=== PATIENT | female | born 1975 | race Caucasian/White ===

== ENCOUNTER → 2016-08-13 | Outpatient (CLI) | payer BC | LOC: WI 10:55 | PROVIDERS: ATTEND Family Medicine | DX: Z12.31 Encounter for screening mammogram for malignant neoplasm of breast (principal); Z53.8 Procedure and treatment not carried out for other reasons ==

== ENCOUNTER → 2016-09-01 | Outpatient (CLI) | payer BC ==
--- NOTE | 2016-09-01 16:31 | WOMENS IMAGING REPORT ---
EXAM DESCRIPTION: BILAT DIAGNOSTIC MAMMO W/CAD; U/S BREAST UNILAT LIMITED COMPLETED DATE/TIME: 09/01/2016 1:44 pm; 09/01/2016 3:04 pm REASON FOR STUDY: BILATERAL DIAGNOSTIC; RT BREAST DISCHARGE R92.2 INCONCLUSIVE MAMMOGRAM COMPARISON: No previous TECHNIQUE: Standard craniocaudal and mediolateral oblique views of each breast recorded using digita l acquisition. Right breast 90 mediolateral view, cone compression of the retroareolar region in the CC and MLO leslie entations. Because of a history of right nipple discharge, right retroareolar breast ultrasound was also perform ed. LIMITATIONS: None. FINDINGS: RIGHT BREAST MASSES: No suspicious masses. CALCIFICATIONS: No new or suspicious calcifications. ARCHITECTURAL DISTORTION: None. DEVELOPING DENSITY: None. ASYMMETRY: None noted. OTHER: No other significant findings. LEFT BREAST MASSES: No suspicious masses. CALCIFICATIONS: No new or suspicious calcifications. ARCHITECTURAL DISTORTION: None. DEVELOPING DENSITY: None. ASYMMETRY: None noted. OTHER: No other significant finding. Read with the assistance of CAD: .[facility] - R2 Cenova Version 1.3 .[facility] - R2 Cenova Version 1.3 .[facility] - R2 Cenova Version 2.4 .[facility] - R2 Cenova Version 2.4 .[facility] - R2 Application Developer Manager Version 9.2 Right breast ultrasound: Ultrasound of the right breast was performed in the retroareolar region. No dilated ducts. No cysts . No solid nodules. No worrisome acoustic absorption. IMPRESSION: No mammographic or sonographic evidence for malignancy right breast. No mammographic ev idence for malignancy left breast. BREAST DENSITY: b. There are scattered areas of fibroglandular density. BIRAD: 1 Negative. RECOMMENDATION: RECOMMENDED FOLLOW UP: Clinical follow-up for nipple discharge. If nipple discharge becomes bloody, consider MRI or ductogram for follow-up. SPECIFIC INTERVENTION/IMAGING/CONSULTATION RECOMMENDED:No additional intervention/ imaging/consultati on needed at this time. COMMUNICATION:Patient notified by letter COMMENT: The patient has been notified of the results by letter per MQSA requirements. Additional no tification policies are in place for contacting patient with suspicious or incomplete findings. Quality ID #225: The [employer] recommends an annual screening mammogram for women aged 40 years or over. This facility utilizes a reminder system to ensure that all patients receive reminder letters, and/or direct phone calls for appointments. This includes reminders for routine scr eening mammograms, diagnostic mammograms, or other Breast Imaging Interventions when appropriate. Th is patient will be placed in the appropriate reminder system. The [employer] (ACR) has developed recommendations for screening MRI of the breast s in certain patient populations, to be used in conjunction with mammography. Breast MRI surveillanc e may be appropriate for women with more than 20% lifetime risk of developing breast cancer as deter mined by genetic testing, significant family history of the disease, or history of mantle radiation f or Hodgkins Disease. ACR Practice Guidelines 2008. TECHNICAL DOCUMENTATION: FINDING NUMBER: (1) ASSESSMENT: (1) JOB ID: [id number] [employer]- All Rights Reserved
--- NOTE | 2016-09-01 16:31 | WOMENS IMAGING REPORT ---
EXAM DESCRIPTION: BILAT DIAGNOSTIC MAMMO W/CAD; U/S BREAST UNILAT LIMITED COMPLETED DATE/TIME: 09/01/2016 1:44 pm; 09/01/2016 3:04 pm REASON FOR STUDY: BILATERAL DIAGNOSTIC; RT BREAST DISCHARGE R92.2 INCONCLUSIVE MAMMOGRAM COMPARISON: No previous TECHNIQUE: Standard craniocaudal and mediolateral oblique views of each breast recorded using digita l acquisition. Right breast 90 mediolateral view, cone compression of the retroareolar region in the CC and MLO leslie entations. Because of a history of right nipple discharge, right retroareolar breast ultrasound was also perform ed. LIMITATIONS: None. FINDINGS: RIGHT BREAST MASSES: No suspicious masses. CALCIFICATIONS: No new or suspicious calcifications. ARCHITECTURAL DISTORTION: None. DEVELOPING DENSITY: None. ASYMMETRY: None noted. OTHER: No other significant findings. LEFT BREAST MASSES: No suspicious masses. CALCIFICATIONS: No new or suspicious calcifications. ARCHITECTURAL DISTORTION: None. DEVELOPING DENSITY: None. ASYMMETRY: None noted. OTHER: No other significant finding. Read with the assistance of CAD: .[facility] - R2 Cenova Version 1.3 .[facility] - R2 Cenova Version 1.3 .[facility] - R2 Cenova Version 2.4 .[facility] [place] - R2 Cenova Version 2.4 .[facility] - R2 Information Analyst Version 9.2 Right breast ultrasound: Ultrasound of the right breast was performed in the retroareolar region. No dilated ducts. No cysts . No solid nodules. No worrisome acoustic absorption. IMPRESSION: No mammographic or sonographic evidence for malignancy right breast. No mammographic ev idence for malignancy left breast. BREAST DENSITY: b. There are scattered areas of fibroglandular density. BIRAD: 1 Negative. RECOMMENDATION: RECOMMENDED FOLLOW UP: Clinical follow-up for nipple discharge. If nipple discharge becomes bloody, consider MRI or ductogram for follow-up. SPECIFIC INTERVENTION/IMAGING/CONSULTATION RECOMMENDED:No additional intervention/ imaging/consultati on needed at this time. COMMUNICATION:Patient notified by letter COMMENT: The patient has been notified of the results by letter per MQSA requirements. Additional no tification policies are in place for contacting patient with suspicious or incomplete findings. Quality ID #225: [employer] recommends an annual screening mammogram for women aged 40 years or over. This facility utilizes a reminder system to ensure that all patients receive reminder letters, and/or direct phone calls for appointments. This includes reminders for routine scr eening mammograms, diagnostic mammograms, or other Breast Imaging Interventions when appropriate. Th is patient will be placed in the appropriate reminder system. The [employer] (ACR) has developed recommendations for screening MRI of the breast s in certain patient populations, to be used in conjunction with mammography. Breast MRI surveillanc e may be appropriate for women with more than 20% lifetime risk of developing breast cancer as deter mined by genetic testing, significant family history of the disease, or history of mantle radiation f or Hodgkins Disease. ACR Practice Guidelines 2008. TECHNICAL DOCUMENTATION: FINDING NUMBER: (1) ASSESSMENT: (1) JOB ID: [id number] [employer]- All Rights Reserved
== END ==
LOC: WI 13:05
PROVIDERS: ATTEND Family Medicine
DX: R92.2 Inconclusive mammogram (principal)
CPT/HCPCS: 76642; G0204; 77066

== ENCOUNTER 2019-03-03 14:43 | Emergency (ER) | payer BC ==
[2019-03-03] MEDS ORDERED: METHYLPREDNISOLONE INJ 125 MG/2 ML SDV IV ONE (16:32)
[2019-03-03] MEDS ORDERED: MAGNESIUM SULFATE/D5W 1 GM/100 ML RTUPB IV ONE ×2 (16:32→16:33)
[2019-03-03] MEDS ORDERED: LEVETIRACETAM 500 MG/NACL-ISO 500 MG/100 ML RTUPB IV ONE (16:32)
[2019-03-03] MEDS ORDERED: IPRATROPIUM/ALBUTEROL 0.5-2.5 MG/3 ML AMPUL NEB ONE (16:32)
[2019-03-03] MEDS ORDERED: NORMAL SALINE 1000 ML 1,000 ML IV ONE (16:32)
--- NOTE | 2019-03-03 16:35 | ER Document Report ---
ED Medical Screen (RME) - General Chief Complaint: Shortness Of Breath Stated Complaint: BREATHING PROBLEMS Time Seen by Provider: 03/03/19 16:31 Primary Care Provider: ELOISA CABRERA MD [Primary Care Provider] - Follow up as needed TRAVEL OUTSIDE OF THE [place]. IN LAST 30 DAYS: No - HPI Notes: 03/03/19 16:33 Patient is a 43-year-old female with a history of seizures, hypothyroidism, asthma who presents complaining of wheezing, shortness of breath, cough for the past 2 days. She did have a seizure a couple hours prior to arrival, but has returned to baseline thereafter per family and patient. No fever, chest pain, abdominal pain, nausea/vomiting. I have treated and performed a rapid initial assessment of this patient. A comprehensive ED assessment and evaluation of the patient, analysis of test results and completion of medical decision making process will be conducted by additional ED providers. Charge nurse notified of condition for room in back. PHYSICAL EXAMINATION: GENERAL: Patient in moderate respiratory distress with audible wheeze noted. Cannot speak in full sentences. Lungs: Tight throughout with wheezing present. Mild retractions noted to the intracostals. currently tachypneic Mouth: tongue bite noted rt side Neuro: Cranial nerves grossly intact. - Related Data Allergies/Adverse Reactions: Shellfish * [Shellfish] Allergy (Verified 02/17/14 22:54) Past Medical History Pulmonary Medical History: Reports: Hx Bronchitis Physical Exam - Vital signs Vitals: Temp Pulse Resp BP Pulse Ox 98.1 F 104 H 18 171/96 H 95 03/03/19 14:47 03/03/19 14:47 03/03/19 14:47 03/03/19 14:47 03/03/19 14:47 Course - Vital Signs Vital signs: Temp Pulse Resp BP Pulse Ox 98.1 F 104 H 18 171/96 H 95 03/03/19 14:47 03/03/19 14:47 03/03/19 14:47 03/03/19 14:47 03/03/19 14:47 Doctor's Discharge - Discharge Referrals: ELOISA CABRERA MD [Primary Care Provider] - Follow up as needed
[2019-03-03 17:08] LABS: VENOUS BLOOD BASE EXCESS -0.3 mmol/L; VENOUS BLOOD HCO3 26.3 mmol/L (20-32); VENOUS BLOOD PCO2 50.5 mmHg (35-63); VENOUS BLOOD PH 7.34 (7.30-7.42)
[2019-03-03 17:12] LABS: ABSOLUTE BASOPHILS # (AUTO) 0.2 10^3/uL (0.0-0.2); ABSOLUTE EOSINOPHILS # (AUTO) 0.6 10^3/uL (0.0-0.6); ABSOLUTE LYMPHOCYTES (AUTO) 2.4 10^3/uL (0.5-4.7); ABSOLUTE MONOCYTES (AUTO) 0.9 10^3/uL (0.1-1.4); ABSOLUTE NEUT (AUTO) 9.9 10^3/uL (1.7-8.2); BASOPHILS % (AUTO) 1.2 % (0-2); EOSINOPHILS % (AUTO) 4.5 % (0-6); HEMATOCRIT 42.5 % (36.0-47.0); HEMOGLOBIN 14.4 g/dL (12.0-15.5); LYMPHOCYTES % (AUTO) 16.9 % (13-45); MEAN CORPUSCULAR HEMOGLOBIN 31.2 pg (27.0-33.4); MEAN CORPUSCULAR HGB CONC 33.9 g/dL (32.0-36.0); MEAN CORPUSCULAR VOLUME 92 fl (80-97); MONOCYTES % (AUTO) 6.6 % (3-13); PLATELET COUNT 406 10^3/uL (150-450); RED BLOOD COUNT 4.62 10^6/uL (3.72-5.28); RED CELL DISTRIBUTION WIDTH 14.8 % (11.5-14.0); SEGMENTED NEUTROPHILS % (AUTO) 70.8 % (42-78); TOTAL CELLS COUNTED % (AUTO) 100 %
[2019-03-03 17:30] LABS: ALBUMIN 4.2 g/dL (3.5-5.0); ALKALINE PHOSPHATASE 74 U/L (38-126); ANION GAP 9 (5-19); ASPARTATE AMINO TRANSFERASE 21 U/L (14-36); BILIRUBIN,DIRECT 0.2 mg/dL (0.0-0.4); BILIRUBIN,TOTAL 0.4 mg/dL (0.2-1.3); BLOOD UREA NITROGEN 10 mg/dL (7-20); CARBON DIOXIDE 26 mmol/L (22-30); CHLORIDE 106 mmol/L (98-107); GLUCOSE 90 mg/dL (75-110); POTASSIUM 4.4 mmol/L (3.6-5.0); TOTAL PROTEIN 7.5 g/dL (6.3-8.2)
--- NOTE | 2019-03-03 17:48 | EKG REPORT ---
SEVERITY:- OTHERWISE NORMAL ECG - SINUS TACHYCARDIA : Confirmed by: Jaspreet Malloy MD 03-Mar-2019 17:48:10
--- NOTE | 2019-03-03 18:09 | RADIOLOGY REPORT (SQ) ---
EXAM DESCRIPTION: CHEST SINGLE VIEW COMPLETED DATE/TIME: 03/03/2019 5:36 pm REASON FOR STUDY: SOB, wheezing, cough COMPARISON: 02/17/2014 EXAM PARAMETERS: NUMBER OF VIEWS: One view. TECHNIQUE: Single frontal radiographic view of the chest acquired. RADIATION DOSE: NA LIMITATIONS: None. FINDINGS: LUNGS AND PLEURA: No opacities, masses or pneumothorax. No pleural effusion. MEDIASTINUM AND HILAR STRUCTURES: No masses. Contour normal. HEART AND VASCULAR STRUCTURES: Cardiomegaly. BONES: No acute findings. HARDWARE: None in the chest. OTHER: No other significant finding. IMPRESSION: Cardiomegaly without acute abnormality of the lungs in AP portable projection. TECHNICAL DOCUMENTATION: JOB ID: [id number] [employer]- All Rights Reserved Reading location - IP/workstation name: [email or web address]
[2019-03-03 18:52] LABS: APPEARANCE,URINE CLEAR; BILIRUBIN,URINE NEGATIVE (NEGATIVE); COLOR,URINE STRAW; GLUCOSE, URINE NEGATIVE (NEGATIVE); KETONES,URINE NEGATIVE (NEGATIVE); PROTEIN,URINE NEGATIVE (NEGATIVE); URINE SPECIFIC GRAVITY 1.006; UROBILINOGEN,URINE NEGATIVE mg/dL (<2.0)
[2019-03-03] MEDS: ALBUTEROL SULFATE 0.083% NEB 2.5 MG/3 ML AMPUL NEB SCH ×2 (19:38→20:00)
--- NOTE | 2019-03-03 21:01 | ER Document Report ---
ED General - General Chief Complaint: Shortness Of Breath Stated Complaint: BREATHING PROBLEMS Time Seen by Provider: 03/03/19 16:31 Primary Care Provider: ELOISA CABRERA MD [NO LOCAL MD] - Follow up as needed Information source: Patient TRAVEL OUTSIDE OF THE U.[place]. IN LAST 30 DAYS: No - HPI Onset: This afternoon - 1300 Onset/Duration: Sudden Severity: Moderate Pain Level: 1 Associated symptoms: Productive cough, Shortness of breath Similar symptoms previously: Yes Recently seen / treated by doctor: No Notes: Patient reports that she had a seizure around 1300 biting her right tongue. She reports she has not had any seizures for over 5 years. She was seen more than 5 years ago by a neurologist who advised they do not usually see seizures and older adult individuals. Patient works [employer] and has IVC in many people this week. These people often are smoking crack and overdosing. Patient has been using her inhalers more than usual for the last several days. For the last 3 days she has had fever chills productive cough just like her daughter as well as tachycardia. Today she has had at least 10 breathing treatments to include the treatment she is received here in the emergency room. Patient is morbidly obese and reports she has not had a PMD for many years. She reports she has had leg edema and occasional pains in bilateral legs. She has a skin lesion over her left distal anterior leg proximally 1 cm diameter that has not been seen by head of art. I advised her to follow-up with a head of art after today's ER visit. Patient also takes Synthroid and recently has had her 100 mcg increased to 250 mcg. Today her TSH is quite suppressed. - Related Data Allergies/Adverse Reactions: Shellfish * [Shellfish] Allergy (Verified 02/17/14 22:54) Home Medications: Synthroid 250 mcg QDay, Buspar PRN, Albuterol Inhaler, Albuterol Nebulizer Past Medical History - General Information source: Patient, Relative - Social History Smoking Status: Current Some Day Smoker - Patient smokes at least 2 to 5 cigarettes daily and has been wearing a nicotine patch for at least 3 weeks. Chew tobacco use (# tins/day): No Smoking Education Provided: Yes - Advised against smoking cigarettes or other mind altering drugs Frequency of alcohol use: None Drug Abuse: None Lives with: Family Family History: Reviewed & Not Pertinent Patient has suicidal ideation: No Patient has homicidal ideation: No Pulmonary Medical History: Reports: Hx Asthma, Hx Bronchitis Neurological Medical History: Reports: Hx Seizures - Patient is historian about this; Review of Systems - Review of Systems Constitutional: Fever, Weakness, Recent illness EENT: Nose congestion Cardiovascular: Orthopnea, Edema Respiratory: Cough, Short of breath Physical Exam - Vital signs Vitals: Temp Pulse Resp BP Pulse Ox 98.1 F 104 H 18 171/96 H 95 03/03/19 14:47 03/03/19 14:47 03/03/19 14:47 03/03/19 14:47 03/03/19 14:47 - Respiratory Respiratory status: Respiratory distress Breath sounds: Wheezing - Cardiovascular Rhythm: Tachycardia Murmur: No Friction rub: No Beryl's crunch: No - Extremities General upper extremity: Normal inspection Ankle: Edema - Both left and right ankles and legs negative for pitting Course - Vital Signs Vital signs: Temp Pulse Resp BP Pulse Ox 98.8 F 115 H 17 143/67 H 96 03/03/19 19:35 03/03/19 20:06 03/03/19 20:06 03/03/19 20:00 03/03/19 20:01 - Laboratory Result Diagrams: 03/03/19 16:47 03/03/19 16:47 Laboratory results interpreted by me: 03/03/19 03/03/19 16:47 16:47 WBC 14.0 H RDW 14.8 H Absolute Neuts (auto) 9.9 H TSH < 0.01 L - Diagnostic Test Radiology reviewed: Reports reviewed - EKG Interpretation by Me EKG shows normal: Sinus rhythm Rate: Tachycardia Rhythm: NSR Discharge - Discharge Clinical Impression: Bronchitis, URI (upper respiratory infection), Seizure Condition: Fair Disposition: HOME, SELF-CARE Prescriptions: Hydrocodone Bit/Homatropine [Hycodan Syrup 5-1.5 mg/5 ml Ud Cup] 5 ml PO Q4HP PRN #120 ml PRN Reason: Levetiracetam [Keppra 500 mg Tablet] 500 mg PO Q12 #30 tablet Azithromycin [Zithromax 250 mg Tablet] 250 mg PO ASDIR PRN #6 tablet PRN Reason: Referrals: ELOISA CABRERA MD [NO LOCAL MD] - Follow up as needed
[2019-03-03 21:31] LABS: A TYPE INFLUENZA AG NEGATIVE (NEGATIVE); B INFLUENZA AG NEGATIVE (NEGATIVE)
[2019-03-03] MEDS ORDERED: AZITHROMYCIN 250 MG TABLET PO ONE (22:03)
--- NOTE | 2019-03-03 22:29 | RADIOLOGY REPORT (SQ) ---
EXAM DESCRIPTION: CT HEAD WITHOUT IV CONTRAST COMPLETED DATE/TME: 03/03/2019 20:53 CLINICAL HISTORY: 43 years, Female, seizure COMPARISON: None. TECHNIQUE: Noncontrast CT of the head was acquired. Coronal and sagittal reformations were created. Images stored on PACS. All CT scanners at this facility use dose modulation, iterative reconstruction, and/or weight based dosing when appropriate to reduce radiation dose to as low as reasonably achievable (ALARA). [facility]: Dose Right [facility]: CareDose [facility]: Dose Right [facility]: Teradose 4D [facility]: Smart Technologies LIMITATIONS: None. FINDINGS: Brain parenchyma is normal in attenuation. No acute intracranial hemorrhage, mass effect, or extra-axial fluid is seen. Ventricles, sulcal spaces, and basilar cisterns are normal in size and configuration. Minimal opacity is noted about the ethmoidal air cells. Remaining paranasal sinuses and mastoid air cells are clear. No depressed skull fractures. IMPRESSION: No acute intracranial abnormality. TECHNICAL DOCUMENTATION: Quality ID # 436: Final reports with documentation of one or more dose reduction techniques (e.g., Automated exposure control, adjustment of the mA and/or kV according to patient size, use of iterative reconstruction technique) copyright 2011 [employer]- All Rights Reserved
--- NOTE | 2019-03-03 22:34 | RADIOLOGY REPORT (SQ) ---
EXAM DESCRIPTION: CT CHEST ANGIOGRAPHY WITHOUT THEN WITH IV CONTRAST COMPLETED DATE/TME: 03/03/2019 00:00 CLINICAL HISTORY: 43 years, Female, SOB COMPARISON: None. TECHNIQUE: Contrast enhanced CT of the chest was acquired. MIPS were created. Images stored on PACS. All CT scanners at this facility use dose modulation, iterative reconstruction, and/or weight based dosing when appropriate to reduce radiation dose to as low as reasonably achievable (ALARA). [facility]: Dose Right [facility]: CareDose [facility]: Dose Right [facility]: Teradose 4D [facility]: Smart Technologies LIMITATIONS: None. FINDINGS: Central airways are patent. Lungs are clear. Mediastinal windows show no significant hilar or mediastinal lymph node enlargement. Heart and great vessels show no suspicious abnormality. The study is essentially nondiagnostic for the evaluation of pulmonary emboli secondary to inadequate contrast bolus timing and motion artifact. No large central filling defects are identified. Limited evaluation of the upper abdomen reveals a hyperenhancing lesion located within the right hepatic lobe on image 92 of series 3 measuring 1.0 x 0.9 cm in size. No additional suspicious findings are evident within the imaged upper abdomen. Bone windows show no destructive osseous lesions. IMPRESSION: Essentially nondiagnostic evaluation for pulmonary emboli secondary to inadequate contrast bolus timing and motion artifact. No large central filling defect identified. Hyperenhancing lesion located within the right hepatic lobe. In the absence of known primary malignancy or underlying chronic liver disease, this most likely represents a flash filling hemangioma. Consider confirmation with nonemergent multiphasic CT or MR of the abdomen. TECHNICAL DOCUMENTATION: Quality ID # 436: Final reports with documentation of one or more dose reduction techniques (e.g., Automated exposure control, adjustment of the mA and/or kV according to patient size, use of iterative reconstruction technique) copyright 2011 [employer]- All Rights Reserved
[2019-03-04 02:29] VITALS: BP 118/72
== END 2019-03-03 23:15 | disposition home or self-care (01) ==
LOC: ER 14:43
DX: J45.909 Unspecified asthma, uncomplicated (principal); R56.9 Unspecified convulsions; J06.9 Acute upper respiratory infection, unspecified; R00.0 Tachycardia, unspecified; R06.01 Orthopnea; R50.9 Fever, unspecified; R09.81 Nasal congestion; R53.1 Weakness; R05 Cough; R06.02 Shortness of breath; E66.01 Morbid (severe) obesity due to excess calories; R60.9 Edema, unspecified; M79.604 Pain in right leg; M79.605 Pain in left leg; L98.9 Disorder of the skin and subcutaneous tissue, unspecified; F17.210 Nicotine dependence, cigarettes, uncomplicated; Z79.899 Other long term (current) drug therapy; Z91.013 Allergy to seafood
CPT/HCPCS: 93005; 96376; 94640 ×2; 99285; 96361; 96374; 96375; 36415; 83735; 84443; 85025; 80053; 81001; 82803; 87804; 71045; 70450; 71275; 93010; J2930; J3475; J7030; J1953; J7620

== ENCOUNTER 2019-03-26 03:55 | Observation (INO) | payer BC ==
[2019-03-26] MEDS ORDERED: METHYLPREDNISOLONE INJ 125 MG/2 ML SDV IV ONE (04:01)
[2019-03-26] MEDS ORDERED: ONDANSETRON HCL INJ/PF 4 MG/2 ML SDV ONE (04:06)
[2019-03-26] MEDS ORDERED: ONDANSETRON HCL INJ/PF 4 MG/2 ML SDV IV ONE (04:06)
[2019-03-26] MEDS ORDERED: IPRATROPIUM/ALBUTEROL 0.5-2.5 MG/3 ML AMPUL NEB ONE ×2 (04:07→06:14)
[2019-03-26] MEDS: MAGNESIUM SULFATE/D5W 1 GM/100 ML RTUPB IV SCH ×2 (04:10→04:19)
--- NOTE | 2019-03-26 04:10 | ER Document Report ---
ED Respiratory Problem <SACHI ALEXIS - Last Filed: 03/26/19 09:04> - General TRAVEL OUTSIDE OF THE [place] IN LAST 30 DAYS: No <URBANO WOOD - Last Filed: 03/26/19 09:29> - General Chief Complaint: Breathing Difficulty Stated Complaint: SHORT OF BREATH Time Seen by Provider: 03/26/19 04:00 Notes: Patient is a 43-year-old male who presents the emergency department with a chief complaint of shortness of breath. Patient states that she was diagnosed with br onchitis a few weeks ago, but with the past few nights she has had progressively worse symptoms. Patient started to have her symptoms 3 days ago. She was seen by EMS earlier in the morning yesterday and was given a breathing treatment and did not come to the emergency department. This evening she ended up having worsening as of breath. (URBANO WOOD) - Related Data Allergies/Adverse Reactions: Shellfish * [Shellfish] Allergy (Verified 02/17/14 22:54) Past Medical History - General Information source: Patient - Social History Smoking Status: Never Smoker Family History: Reviewed & Not Pertinent Pulmonary Medical History: Reports: Hx Asthma, Hx Bronchitis Neurological Medical History: Reports: Hx Seizures - Patient is historian about this; <URBANO WOOD - Last Filed: 03/26/19 09:29> Review of Systems <URBANO WOOD - Last Filed: 03/26/19 09:29> - Review of Systems Notes: REVIEW OF SYSTEMS: CONSTITUTIONAL : Denies recent illness. Denies recent unintentional weight loss. Denies fever, chills, or sweats. EENT: Denies eye, ear, throat, or mouth pain, discharge, or symptoms. Denies nasal or sinus congestion. CARDIOVASCULAR: Denies chest pain. RESPIRATORY: See HPI. GASTROINTESTINAL: Denies nausea, vomiting, and diarrhea. Denies abdominal pain. Denies constipation. GENITOURINARY: Denies difficulty urinating, burning, blood in urine, urgency or frequency. MUSCULOSKELETAL: Denies neck and back pain. Denies joint pain or swelling. SKIN: Denies rash, itchiness, or lesions HEMATOLOGIC : Denies easy bruising or bleeding. LYMPHATIC: Denies swollen, painful, enlarged glands. NEUROLOGICAL: Denies no numbness or tingling denies weakness. Denies headache. Denies altered mental status. Denies alteration in speech. PSYCHIATRIC: Denies stress, anxiety, alteration in sleep patterns, or depres yessica. All other systems reviewed and negative. (URBANO WOOD) Physical Exam <URBANO WOOD - Last Filed: 03/26/19 09:29> - Vital signs Vitals: Pulse Ox 96 03/26/19 03:58 - Notes Notes: PHYSICAL EXAMINATION: GENERAL: Appears in acute distress. HEAD: Normocephalic, atraumatic. EYES: PERRL, conjunctiva normal, all extraocular movements intact, sclera nonicteric ENT: Moist mucous membranes. NECK: Supple, no noticeable swelling, redness, rash. Normal range of motion. LUNGS: Expiratory wheezes noted throughout all lung batres. CARDIOVASCULAR: S1-S2, Tachycardic, regular rhythm. Radial pulses 2+, normal. ABDOMEN: Normoactive bowel sounds. Soft, nontender, no guarding, no rebound tenderness, and no masses palpated. EXTREMITIES: Normal strength and range of motion, no pitting or edema. No cyanosis. NEUROLOGICAL: Moves all extremities upon command. Strength 5/5 in all extremities. PSYCH: Normal mood, normal affect. SKIN: Warm, dry. No rash, lesions, ulcerations noted. Normal skin turgor. (URBANO WOOD) Course - Laboratory Result Diagrams: 03/26/19 04:02 03/26/19 04:02 <SACHI ALEXIS - Last Filed: 03/26/19 09:04> - Laboratory Result Diagrams: 03/26/19 04:02 03/26/19 04:02 <URBANO WOOD - Last Filed: 03/26/19 09:29> - Re-evaluation Re-evalutation: 03/26/19 08:05 Report received on the patient. Patient is on 2 L supplemental O2 with pulse oximetry of 92% still. She has audible wheezing despite multiple treatments still becomes dyspneic with speaking. On turning the patient's oxygen off she does desat even with no significant activity to 91% and is short of breath. Awaiting chest CT for PE at this time. Will likely need admission for hypoxia, asthma exacerbation if CTA negative 03/26/19 08:59 Patient is noted to have a left upper lobe pneumonia. On further discussion with the patient she states she was discharged on Zithromax 3 weeks ago and did not get better. Patient also has a history of hypothyroid and does take Synthroid, on review of her labs her TSH was low on her last visit she states she has not been holding her Synthroid we will add a TSH level. Patient also states that she has sleep apnea and is on CPAP at night. 03/26/19 09:[address] Fletcher, Hospitalist. Was discussed will admit (SACHI ALEXIS) 03/26/19 04:28 Patient states that it feels better to breathe after she received 2 DuoNeb treatments, magnesium, and Solu-Medrol. Patient still has expiratory wheezes. I will reassess her. 03/26/19 05:50 Patient still has expiratory wheezes noted throughout all lung batres. She will receive another DuoNeb treatment. 03/26/19 07:48 Patient still has expiratory wheezes noted throughout all lung batres after the third DuoNeb. Awaiting CTA of the chest. 03/26/19 08:00 Bedside handoff of care given to Sachi Alexis NP. He will follow-up on the patient's CTA of the chest. (URBANO WOOD) - Vital Signs Vital signs: Temp Pulse Resp BP Pulse Ox 99.2 F 20 133/83 H 93 03/26/19 04:40 03/26/19 06:46 03/26/19 06:46 03/26/19 06:46 - Laboratory Laboratory results interpreted by me: 03/26/19 03/26/19 03/26/19 04:02 04:02 04:17 WBC 13.8 H RDW 15.5 H Lymph % (Auto) 8.9 L Eos % (Auto) 6.9 H Absolute Neuts (auto) 10.5 H Absolute Eos (auto) 1.0 H ABG HCO3 25.0 H ABG Total CO2 26.3 H Glucose 117 H - EKG Interpretation by Me Additional EKG results interpreted by me: 03/26/19 04:58 Sinus tachycardia. Rate 107; VA 160; QRS 78; QT 352; QTc 470. No ST elevations or depressions noted. (URBANO WOOD) Discharge - Discharge Admitting Provider: Gabriela (Hospitalist) Unit Admitted: Medical Floor <SACHI ALEXIS - Last Filed: 03/26/19 09:04> <URBANO WOOD - Last Filed: 03/26/19 09:29> - Discharge Clinical Impression: Hypoxia Pneumonia Qualifiers: Pneumonia type: due to unspecified organism Laterality: left Lung location: upper lobe of lung Qualified Code(s): J18.9 - Pneumonia, unspecified organism Condition: Serious Disposition: ADMITTED INPATIENT
[2019-03-26 04:22] LABS: ABSOLUTE BASOPHILS # (AUTO) 0.1 10^3/uL (0.0-0.2); ABSOLUTE LYMPHOCYTES (AUTO) 1.2 10^3/uL (0.5-4.7); ABSOLUTE NEUT (AUTO) 10.5 10^3/uL (1.7-8.2); BASOPHILS % (AUTO) 0.9 % (0-2); EOSINOPHILS % (AUTO) 6.9 % (0-6); HEMATOCRIT 41.2 % (36.0-47.0); HEMOGLOBIN 13.8 g/dL (12.0-15.5); LYMPHOCYTES % (AUTO) 8.9 % (13-45); MEAN CORPUSCULAR HEMOGLOBIN 30.8 pg (27.0-33.4); MEAN CORPUSCULAR HGB CONC 33.4 g/dL (32.0-36.0); MEAN CORPUSCULAR VOLUME 92 fl (80-97); MONOCYTES % (AUTO) 6.9 % (3-13); PLATELET COUNT 334 10^3/uL (150-450); RED BLOOD COUNT 4.46 10^6/uL (3.72-5.28); RED CELL DISTRIBUTION WIDTH 15.5 % (11.5-14.0); SEGMENTED NEUTROPHILS % (AUTO) 76.4 % (42-78); TOTAL CELLS COUNTED % (AUTO) 100 %; WHITE BLOOD COUNT 13.8 10^3/uL (4.0-10.5)
[2019-03-26 04:38] LABS: ARTERIAL BLOOD BASE EXCESS 0.1 mmol/L; ARTERIAL BLOOD H2CO3 1.26 mmol/L (1.05-1.35); ARTERIAL BLOOD O2 SATURATION 95.8 % (94-98); ARTERIAL BLOOD PCO2 41.8 mmHg (35-45); ARTERIAL BLOOD PO2 80.4 mmHg (80-100); ARTERIAL BLOOD TOTAL CO2 26.3 mmol/L (21-25)
[2019-03-26 04:38] LABS: ALKALINE PHOSPHATASE 69 U/L (38-126); ANION GAP 9 (5-19); ASPARTATE AMINO TRANSFERASE 22 U/L (14-36); BILIRUBIN,DIRECT 0.3 mg/dL (0.0-0.4); BILIRUBIN,TOTAL 0.6 mg/dL (0.2-1.3); BLOOD UREA NITROGEN 13 mg/dL (7-20); CALCIUM 9.3 mg/dL (8.4-10.2); CARBON DIOXIDE 25 mmol/L (22-30); CHLORIDE 107 mmol/L (98-107); GLUCOSE 117 mg/dL (75-110); POTASSIUM 4.4 mmol/L (3.6-5.0); TOTAL PROTEIN 7.2 g/dL (6.3-8.2)
[2019-03-26 04:44] LABS: ARTERIAL BLOOD FIO2 6L
[2019-03-26] MEDS ORDERED: ALBUTEROL SULFATE 0.083% NEB 2.5 MG/3 ML AMPUL NEB ONE (04:47)
--- NOTE | 2019-03-26 05:05 | RADIOLOGY REPORT (SQ) ---
AP Portable chest: 03/26/2019 4:03 AM PASSENGER REPRESENTATIVE History: 43-year old patient with dyspnea. Comparison: Chest radiograph performed 03/03/2019. Findings: The cardiomediastinal silhouette is enlarged. No pneumothorax is seen. No discrete pleural effusion is apparent. No acute airspace opacities are seen. Impression: No acute airspace opacities are seen. The cardiomediastinal silhouette is enlarged.
[2019-03-26 06:10] LABS: A TYPE INFLUENZA AG NEGATIVE (NEGATIVE); B INFLUENZA AG NEGATIVE (NEGATIVE)
--- NOTE | 2019-03-26 08:47 | RADIOLOGY REPORT (SQ) ---
EXAM DESCRIPTION: CTA CHEST COMPLETED DATE/TIME: 03/26/2019 8:35 am REASON FOR STUDY: shortness of breath; tachycardic COMPARISON: None. TECHNIQUE: CT scan of the chest performed using helical scanning technique with dynamic intravenous contrast injection. Images reviewed with lung, soft tissue and bone windows. Reconstructed coronal and sagittal MPR images reviewed. Additional 3 dimensional post-processing performed to develop Maximal Intensity Projection images ([place] P). All images stored on PACS. All CT scanners at this facility use dose modulation, iterative reconstruction, and/or weight based d osing when appropriate to reduce radiation dose to as low as reasonably achievable (ALARA). [facility]: Dose Right [facility]: CareDose [facility]: Dose Right [facility]: Teradose 4D [facility]: [employer] CONTRAST TYPE AND DOSE: contrast/concentration: Isovue 350.00 mg/ml; Total Contrast Delivered: 75.0 ml; Total Saline Delivered: 64.7 ml Contrast bolus optimized for the pulmonary arteries. Not diagnostic for the aorta. RENAL FUNCTION: BUN 13, creatinine 0.71 RADIATION DOSE: CT Rad equipment meets quality standard of care and radiation dose reduction techniq ues were employed. CTDIvol: 9.9 - 41.8 mGy. DLP: 1447 mGy-cm. . LIMITATIONS: None. FINDINGS: LUNGS AND PLEURA: There are patchy areas of infiltrate in the left upper lobe. No pleural effusions. Minimal right basilar atelectasis. AORTA AND GREAT VESSELS: No aneurysm. Contrast bolus not optimized for the aorta. HEART: No pericardial effusion. No significant coronary artery calcifications. PULMONARY ARTERIES: No emboli visualized in the main pulmonary arteries or the segmental branches. HILAR AND MEDIASTINAL STRUCTURES: No identified masses or abnormal nodes. HARDWARE: None in the chest. UPPER ABDOMEN: No significant findings. Limited exam. THYROID AND OTHER SOFT TISSUES: No masses. No adenopathy. BONES: No acute or significant finding. 3D MIPS: Confirm above findings. OTHER: No other significant finding. IMPRESSION: Patchy areas of infiltrate in the left upper lobe. No pulmonary emboli. COMMENT: Quality ID # [id number]: Final reports with documentation of one or more dose reduction techniques (e.g., Automated exposure control, adjustment of the mA and/or kV according to patient size, use of iterative reconstruction technique) TECHNICAL DOCUMENTATION: JOB ID: [id number]- All Rights Reserved Reading location - IP/workstation name: [email or web address]
[2019-03-26] MEDS ORDERED: CEFTRIAXONE 1 GM/D5W RTU 50 ML IV ONE (08:53)
[2019-03-26] MEDS ORDERED: AZITHROMYCIN INJ 500 MG VIAL IV ONE (08:54)
--- NOTE | 2019-03-26 09:15 | EKG REPORT ---
SEVERITY:- OTHERWISE NORMAL ECG - SINUS TACHYCARDIA : Confirmed by: Leta Andrea 26-Mar-2019 09:14:36
[2019-03-26] MEDS ORDERED: LEVOFLOXACIN 750 MG/D5W RTU 750 MG/150 ML RTUPB IV ONE (09:30)
[2019-03-26] MEDS ORDERED: BUSPIRONE HCL 5 MG PO PRN (13:13)
[2019-03-26] MEDS ORDERED: (PENDING PHARMACY ID) (Naproxen [Naprosyn] 500 MG) PO PRN (13:13)
[2019-03-26] MEDS ORDERED: ALBUTEROL SULFATE 0.083% NEB 2.5 MG/3 ML AMPUL NEB PRN (13:19)
--- NOTE | 2019-03-26 13:23 | PDOC H&P ---
History of Present Illness Admission Date/PCP: 03/26/19 09:09 Patient complains of: Shortness of breath History of Present Illness: CHRIS CHAVEZ is a 43 year old female who has history of asthma, COPD on CPAP which she is noncompliant with. She also has history of seizures and hypothyroidism. She is a former smoker. Her symptoms started initially 3 to 4 weeks ago. She was diagnosed with bronchitis in the emergency room and was discharged on azithromycin. She states she felt better but when she went to work she started to feel fatigued and tired and short of breath. Her symptoms progressed especially the past 3 days. Yesterday she actually was treated by EMS but did not come to the emergency room. Her symptoms did not improve and she had to come today for evaluation. She denied wheezing or fever. Admits to progressive severe cough with yellowish sputum production. Past Medical History Pulmonary Medical History: Reports: Asthma, Bronchitis Neurological Medical History: Reports: Seizures - Patient is historian about this; Social History Smoking Status: Never Smoker Family History Family History: DM Parental Family History Reviewed: Yes Children Family History Reviewed: Yes Sibling(s) Family History Reviewed.: Yes Medication/Allergy Home Medications: Budesonide/Formoterol Fumarate [Symbicort Hfa 80-4.5 Mcg Inhaler 6.9 gm] 1 puff IH BID 03/26/19 Buspirone HCl [Buspar 15 mg Tablet] 5 mg PO Q8HP PRN 03/26/19 Lamotrigine [Lamotrigine Odt] 25 mg PO BID 03/26/19 Levothyroxine Sodium [Synthroid] 25 mcg PO Q6AM 03/26/19 Naproxen [Naprosyn] 500 mg PO BIDP PRN 03/26/19 Allergies/Adverse Reactions: Shellfish * [Shellfish] Allergy (Verified 02/17/14 22:54) Review of Systems All systems: reviewed and no additional remarkable complaints except as stated Physical Exam Vital Signs: Temp Pulse Resp BP Pulse Ox 99.2 F 21 H 148/92 H 95 03/26/19 04:40 03/26/19 12:31 03/26/19 12:31 03/26/19 12:31 Intake & Output 03/25/19 03/26/19 03/27/19 06:59 06:59 06:59 Intake Total 145 150 Balance 145 150 Weight 340 lb Exam: Patient is no acute distress Alert oriented to time place person No anxiety or depression Head: atraumatic normocephalic Pupils: are equal reactive Neck: is supple and trachea is central no lymphadenopathy No pharyngeal erythema or exudates Heart: Regular rate and rhythm, no peripheral edema Lungs: Bilateral wheezing, on nasal cannula oxygen Abdomen: nontender nondistended Neurological exam: unremarkable Musculoskeletal: No joint swelling or effusion chronic lower back pain and tenderness No suicidal or homicidal ideation Results Laboratory Results: 03/26/19 04:02 03/26/19 04:02 03/26/19 03/26/19 03/26/19 04:02 04:02 04:02 WBC 13.8 H RBC 4.46 Hgb 13.8 Hct 41.2 MCV 92 MCH 30.8 MCHC 33.4 RDW 15.5 H Plt Count 334 Seg Neutrophils % 76.4 Carbonic Acid HCO3/H2CO3 Ratio ABG pH ABG pCO2 ABG pO2 ABG HCO3 ABG O2 Saturation ABG Base Excess FiO2 Sodium 140.9 Potassium 4.4 Chloride 107 Carbon Dioxide 25 Anion Gap 9 BUN 13 Creatinine 0.71 Est GFR ( Amer) > 60 Glucose 117 H Lactic Acid 1.5 Calcium 9.3 Total Bilirubin 0.6 AST 22 Alkaline Phosphatase 69 Total Protein 7.2 Albumin 4.0 TSH 03/26/19 03/26/19 04:02 04:17 WBC RBC Hgb Hct MCV MCH MCHC RDW Plt Count Seg Neutrophils % Carbonic Acid 1.26 HCO3/H2CO3 Ratio 19:1 ABG pH 7.40 ABG pCO2 41.8 ABG pO2 80.4 ABG HCO3 25.0 H ABG O2 Saturation 95.8 ABG Base Excess 0.1 FiO2 6L Sodium Potassium Chloride Carbon Dioxide Anion Gap BUN Creatinine Est GFR ( Amer) Glucose Lactic Acid Calcium Total Bilirubin AST Alkaline Phosphatase Total Protein Albumin TSH 0.30 L Impressions: Chest/Abdomen CTA 03/26/19 06:39 IMPRESSION: Patchy areas of infiltrate in the left upper lobe. No pulmonary emboli. Assessment and Plan - Diagnosis (1) Pneumonia Qualifiers: Pneumonia type: due to unspecified organism Laterality: left Lung lo cation: upper lobe of lung Qualified Code(s): J18.9 - Pneumonia, unspecified organism Is this a current diagnosis for this admission?: Yes Plan: Start Levaquin empirically. Start aggressive bronchodilator treatments. Prednisone 40 mg orally daily. (2) Hypothyroidism Is this a current diagnosis for this admission?: Yes Plan: Continue levothyroxine (3) Epilepsy Is this a current diagnosis for this admission?: Yes Plan: Continue Lamictal (4) Sleep apnea Is this a current diagnosis for this admission?: Yes Plan: Noncompliant with CPAP (5) Asthma Is this a current diagnosis for this admission?: Yes Plan: On Symbicort outpatient. Bilateral wheezing on exam. Will start prednisone as above.
[2019-03-26] MEDS ORDERED: BUSPIRONE HCL 10 MG TABLET PO PRN (13:42)
[2019-03-26] MEDS ORDERED: NAPROXEN 250 MG TABLET PO PRN (13:42)
[2019-03-26] MEDS: PREDNISONE 20 MG TABLET PO SCH (15:19)
[2019-03-26] MEDS: IPRATROPIUM/ALBUTEROL 0.5-2.5 MG/3 ML AMPUL NEB SCH ×2 (15:43→20:53)
[2019-03-26] MEDS ORDERED: (PENDING PHARMACY ID) (Budesonide/Formoterol Fumarate 1 PUFF) IH SCH (18:00)
[2019-03-26] MEDS ORDERED: LAMOTRIGINE 25 MG PO SCH (18:00)
[2019-03-27] MEDS: IPRATROPIUM/ALBUTEROL 0.5-2.5 MG/3 ML AMPUL NEB SCH ×6 (00:12→20:26)
[2019-03-27] MEDS: LEVOTHYROXINE SODIUM 0.025 MG TABLET PO SCH (05:12)
[2019-03-27] MEDS ORDERED: LEVOTHYROXINE SODIUM 25 MCG PO SCH (06:00)
[2019-03-27] MEDS: PREDNISONE 20 MG TABLET PO SCH (09:49)
[2019-03-27] MEDS: FLUTICASONE/VILANTEROL 100-25 MCG/DOSE IH SCH (09:49)
[2019-03-27] MEDS: LEVOFLOXACIN 750 MG TABLET PO SCH (09:49)
[2019-03-27] MEDS ORDERED: PREDNISONE 20 MG TABLET PO ONE (11:30)
[2019-03-27] MEDS: METHYLPREDNISOLONE INJ 125 MG/2 ML SDV IV SCH ×2 (13:25→22:36)
[2019-03-27] MEDS ORDERED: METHYLPREDNISOLONE INJ 40 MG/1 ML SDV IV SCH (14:00)
--- NOTE | 2019-03-27 15:58 | PDOC PROGRESS REPORT ---
Subjective Progress Note for:: 03/27/19 Subjective:: CHRIS CHAVEZ is a 43 year old female who has history of asthma, COPD on CPAP which she is noncompliant with. She also has history of seizures and hypothyroidism. She is a former smoker. Her symptoms started initially 3 to 4 weeks ago. She was diagnosed with bronchitis in the emergency room and was discharged on azithromycin. She states she felt better but when she went to work she started to feel fatigued and tired and short of breath. Her symptoms progressed especially the past 3 days. Yesterday she actually was treated by EMS but did not come to the emergency room. Her symptoms did not improve and she had to come today for evaluation. She denied wheezing or fever. Admits to progressive severe cough with yellowish sputum production. 03/27/2019. No acute events overnight. Still significant wheezing on physical examination and dependent on oxygen. Denies any fever, chills, nausea, vomiting, diarrhea, constipation or any urinary symptoms. Reason For Visit: PNEUMONIA Physical Exam Vital Signs: Temp Pulse Resp BP Pulse Ox 97.5 F 84 16 116/67 95 03/27/19 08:33 03/27/19 15:51 03/27/19 15:51 03/27/19 08:33 03/27/19 15:51 Intake & Output 03/26/19 03/27/19 03/28/19 06:59 06:59 06:59 Intake Total 145 410 Balance 145 410 Weight 154.221 kg 150.7 kg General appearance: PRESENT: mild distress Head exam: PRESENT: atraumatic, normocephalic Respiratory exam: PRESENT: prolonged expiratory phas. ABSENT: rales, rhonchi, wheezes Cardiovascular exam: PRESENT: RRR. ABSENT: diastolic murmur, rubs, systolic murmur Neurological exam: PRESENT: alert, awake, oriented to person, oriented to place, oriented to time, oriented to situation, CN II-XII grossly intact. ABSENT: motor sensory deficit Results Laboratory Results: 03/26/19 04:02 03/26/19 04:02 Impressions: Chest/Abdomen CTA 03/26/19 06:39 IMPRESSION: Patchy areas of infiltrate in the left upper lobe. No pulmonary emboli. Assessment and Plan - Diagnosis (1) Acute respiratory failure with hypoxia Is this a current diagnosis for this admission?: Yes Plan: Was likely due to right upper lobe pneumonia complicated by underlying asthma exacerbation. Continue duo nebs, IV steroids, empiric IV antibiotics, supplemental oxygen, LABA, LABA, ICS. (2) Asthma Qualifiers: Asthma severity: mild Asthma persistence: persistent Is this a current diagnosis for this admission?: Yes Plan: Plan as per 1. (3) Pneumonia Qualifiers: Pneumonia type: due to unspecified organism Laterality: left Lung location: upper lobe of lung Qualified Code(s): J18.9 - Pneumonia, unspecified organism Is this a current diagnosis for this admission?: Yes Plan: Likely community-acquired due to gram-positive cocci including Streptococcus pneumonia. Presented with leukocytosis, hypoxia, tachypnea and right upper lobe infiltration or CT chest. Day 2 p.o. levofloxacin. Continue broad-spectrum p.o. antibiotics. Follow-up cultures. (4) Epilepsy Is this a current diagnosis for this admission?: Yes Plan: No recurrence of seizure while inpatient. Continue home meds. Continue seizure, fall and aspiration precautions. (5) Hypothyroidism Is this a current diagnosis for this admission?: Yes Plan: Continue levothyroxine. TSH WNL. (6) Sleep apnea Is this a current diagnosis for this admission?: Yes Plan: Noncompliant with CPAP. Continue nocturnal CPAP.
[2019-03-28] MEDS: IPRATROPIUM/ALBUTEROL 0.5-2.5 MG/3 ML AMPUL NEB SCH ×6 (00:22→20:12)
[2019-03-28 05:08] LABS: ABSOLUTE LYMPHOCYTES (AUTO) 0.7 10^3/uL (0.5-4.7); ABSOLUTE MONOCYTES (AUTO) 0.3 10^3/uL (0.1-1.4); HEMATOCRIT 37.4 % (36.0-47.0); HEMOGLOBIN 12.7 g/dL (12.0-15.5); LYMPHOCYTES % (AUTO) 6.7 % (13-45); MEAN CORPUSCULAR HEMOGLOBIN 31.2 pg (27.0-33.4); MEAN CORPUSCULAR VOLUME 92 fl (80-97); PLATELET COUNT 322 10^3/uL (150-450); RED BLOOD COUNT 4.07 10^6/uL (3.72-5.28); RED CELL DISTRIBUTION WIDTH 15.8 % (11.5-14.0); SEGMENTED NEUTROPHILS % (AUTO) 90.3 % (42-78); TOTAL CELLS COUNTED % (AUTO) 100 %; WHITE BLOOD COUNT 11.1 10^3/uL (4.0-10.5)
[2019-03-28 05:33] LABS: ANION GAP 6 (5-19); BLOOD UREA NITROGEN 13 mg/dL (7-20); CALCIUM 8.7 mg/dL (8.4-10.2); CARBON DIOXIDE 26 mmol/L (22-30); CHLORIDE 107 mmol/L (98-107); GLUCOSE 147 mg/dL (75-110); POTASSIUM 5.1 mmol/L (3.6-5.0)
[2019-03-28] MEDS: LEVOTHYROXINE SODIUM 0.025 MG TABLET PO SCH (05:36)
[2019-03-28] MEDS: METHYLPREDNISOLONE INJ 125 MG/2 ML SDV IV SCH ×3 (05:36→21:13)
[2019-03-28] MEDS ORDERED: PREDNISONE 20 MG TABLET PO SCH (10:00)
[2019-03-28] MEDS: LEVOFLOXACIN 750 MG TABLET PO SCH (10:11)
[2019-03-28] MEDS: FLUTICASONE/VILANTEROL 100-25 MCG/DOSE IH SCH (10:14)
--- NOTE | 2019-03-28 15:25 | PDOC PROGRESS REPORT ---
Subjective Progress Note for:: 03/28/19 Subjective:: CHRIS CHAVEZ is a 43 year old female who has history of asthma, COPD on CPAP which she is noncompliant with. She also has history of seizures and hypothyroidism. She is a former smoker. Her symptoms started initially 3 to 4 weeks ago. She was diagnosed with bronchitis in the emergency room and was discharged on azithromycin. She states she felt better but when she went to work she started to feel fatigued and tired and short of breath. Her symptoms progressed especially the past 3 days. Yesterday she actually was treated by EMS but did not come to the emergency room. Her symptoms did not improve and she had to come today for evaluation. She denied wheezing or fever. Admits to progressive severe cough with yellowish sputum production. 03/27/2019. No acute events overnight. Still significant wheezing on physical examination and dependent on oxygen. Denies any fever, chills, nausea, vomiting, diarrhea, constipation or any urinary symptoms. 03/28/2019. No acute events overnight. Patient still dependent on oxygen having significant wheezing on physical examination. Denies any fever, chills, nausea, vomiting, diarrhea, constipation or any urinary symptoms. Reason For Visit: PNEUMONIA Physical Exam Vital Signs: Temp Pulse Resp BP Pulse Ox 97.6 F 97 23 H 133/74 H 95 03/27/19 15:25 03/28/19 12:21 03/28/19 12:21 03/27/19 15:25 03/28/19 12:21 Intake & Output 03/27/19 03/28/19 03/29/19 06:59 06:59 06:59 Intake Total 410 1040 Output Total 400 Balance 410 1040 -400 Weight 150.7 kg 153.9 kg General appearance: PRESENT: no acute distress, morbidly obese, well-developed, well-nourished Head exam: PRESENT: atraumatic, normocephalic Respiratory exam: PRESENT: prolonged expiratory phas, wheezes. ABSENT: rales, rhonchi Cardiovascular exam: PRESENT: RRR. ABSENT: diastolic murmur, rubs, systolic murmur GI/Abdominal exam: PRESENT: normal bowel sounds, soft. ABSENT: distended, guarding, mass, organolmegaly, rebound, tenderness Neurological exam: PRESENT: alert, awake, oriented to person, oriented to place, oriented to time, oriented to situation, CN II-XII grossly intact. ABSENT: motor sensory deficit Results Laboratory Results: 03/28/19 04:09 03/28/19 04:09 03/28/19 03/28/19 04:09 04:09 WBC 11.1 H RBC 4.07 Hgb 12.7 Hct 37.4 MCV 92 MCH 31.2 MCHC 34.0 RDW 15.8 H Plt Count 322 Seg Neutrophils % 90.3 H Sodium 139.4 Potassium 5.1 H Chloride 107 Carbon Dioxide 26 Anion Gap 6 BUN 13 Creatinine 0.56 Est GFR ( Amer) > 60 Glucose 147 H Calcium 8.7 Impressions: Chest/Abdomen CTA 03/26/19 06:39 IMPRESSION: Patchy areas of infiltrate in the left upper lobe. No pulmonary emboli. Assessment and Plan - Diagnosis (1) Acute respiratory failure with hypoxia Is this a current diagnosis for this admission?: Yes Plan: Was likely due to right upper lobe pneumonia complicated by underlying asthma exacerbation. Continue duo nebs, IV steroids, empiric IV antibiotics, supplemental oxygen, LABA, LABA, ICS. (2) Pneumonia Qualifiers: Pneumonia type: due to unspecified organism Laterality: left Lung location: upper lobe of lung Qualified Code(s): J18.9 - Pneumonia, unspecified organism Is this a current diagnosis for this admission?: Yes Plan: Most likely community-acquired. CT chest patchy infiltrate right upper lobe. Likely due to gram-positive cocci including Streptococcus pneumonia. Day 2 IV antibiotics. Day 2 IV levofloxacin. Continue empiric IV antibiotics. Follow-up cultures. (3) Asthma Qualifiers: Asthma severity: mild Asthma persistence: persistent Is this a current diagnosis for this admission?: Yes Plan: Plan as per 1. (4) Epilepsy Is this a current diagnosis for this admission?: Yes Plan: No recurrence of seizure while inpatient. Continue home meds. Continue seizure, fall and aspiration precautions. (5) Hypothyroidism Is this a current diagnosis for this admission?: Yes Plan: Continue levothyroxine. TSH WNL. (6) Sleep apnea Is this a current diagnosis for this admission?: Yes Plan: Noncompliant with CPAP. Continue nocturnal CPAP.
[2019-03-29] MEDS: IPRATROPIUM/ALBUTEROL 0.5-2.5 MG/3 ML AMPUL NEB SCH ×6 (00:04→21:04)
[2019-03-29] MEDS: LEVOTHYROXINE SODIUM 0.025 MG TABLET PO SCH (05:01)
[2019-03-29] MEDS: METHYLPREDNISOLONE INJ 125 MG/2 ML SDV IV SCH ×3 (05:01→21:17)
[2019-03-29] MEDS: FLUTICASONE/VILANTEROL 100-25 MCG/DOSE IH SCH (10:44)
[2019-03-29] MEDS: LEVOFLOXACIN 750 MG TABLET PO SCH (10:44)
[2019-03-29] MEDS: LAMOTRIGINE 25 MG TAB.CHEW PO SCH ×2 (10:47→21:18)
[2019-03-29] MEDS ORDERED: MAGNESIUM HYDROXIDE SUSP 30 ML UDCUP PO PRN (10:57)
--- NOTE | 2019-03-29 13:38 | PDOC PROGRESS REPORT ---
Subjective Progress Note for:: 03/29/19 Subjective:: CHRIS CHAVEZ is a 43 year old female who has history of asthma, COPD on CPAP which she is noncompliant with. She also has history of seizures and hypothyroidism. She is a former smoker. Her symptoms started initially 3 to 4 weeks ago. She was diagnosed with bronchitis in the emergency room and was discharged on azithromycin. She states she felt better but when she went to work she started to feel fatigued and tired and short of breath. Her symptoms progressed especially the past 3 days. Yesterday she actually was treated by EMS but did not come to the emergency room. Her symptoms did not improve and she had to come today for evaluation. She denied wheezing or fever. Admits to progressive severe cough with yellowish sputum production. 03/27/2019. No acute events overnight. Still significant wheezing on physical examination and dependent on oxygen. Denies any fever, chills, nausea, vomiting, diarrhea, constipation or any urinary symptoms. 03/28/2019. No acute events overnight. Patient still dependent on oxygen having significant wheezing on physical examination. Denies any fever, chills, nausea, vomiting, diarrhea, constipation or any urinary symptoms. 03/29/2019. No acute events overnight. Significant improvement in respiratory status compared to yesterday, unfortunately patient still having some wheezing and will benefit from a secondarily, denies any fever, chills, nausea, vomiting, diarrhea. Complaining of constipation. P.o. tolerant. Reason For Visit: PNEUMONIA Physical Exam Vital Signs: Temp Pulse Resp BP Pulse Ox 97.6 F 81 16 151/99 H 92 03/29/19 07:36 03/29/19 11:18 03/29/19 11:18 03/29/19 07:36 03/29/19 11:18 Intake & Output 03/28/19 03/29/19 03/30/19 06:59 06:59 06:59 Intake Total 1040 1740 Output Total 1900 Balance 1040 -160 Weight 153.9 kg 153.4 kg General appearance: PRESENT: no acute distress, morbidly obese, well-developed, well-nourished Head exam: PRESENT: atraumatic, normocephalic Neck exam: ABSENT: carotid bruit, JVD, lymphadenopathy, thyromegaly Respiratory exam: PRESENT: prolonged expiratory phas, wheezes. ABSENT: rales, rhonchi Cardiovascular exam: PRESENT: RRR. ABSENT: diastolic murmur, rubs, systolic murmur Neurological exam: PRESENT: alert, awake, oriented to person, oriented to place, oriented to time, oriented to situation, CN II-XII grossly intact. ABSENT: motor sensory deficit Results Laboratory Results: 03/28/19 04:09 03/28/19 04:09 03/27/19 11:22 Sputum Gram Stain - Final 03/27/19 11:22 Sputum Sputum Culture - Final NORMAL DAR Impressions: Chest/Abdomen CTA 03/26/19 06:39 IMPRESSION: Patchy areas of infiltrate in the left upper lobe. No pulmonary emboli. Assessment and Plan - Diagnosis (1) Acute respiratory failure with hypoxia Is this a current diagnosis for this admission?: Yes Plan: Was likely due to right upper lobe pneumonia complicated by underlying asthma exacerbation. Continue duo nebs, IV steroids, empiric IV antibiotics, supplemental oxygen, LABA, LABA, ICS. (2) Pneumonia Qualifiers: Pneumonia type: due to unspecified organism Laterality: left Lung l ocation: upper lobe of lung Qualified Code(s): J18.9 - Pneumonia, unspecified organism Is this a current diagnosis for this admission?: Yes Plan: Most likely community-acquired. CT chest patchy infiltrate right upper lobe. Likely due to gram-positive cocci including Streptococcus pneumonia. Day 3 IV antibiotics. Day 3 PO levofloxacin. Continue empiric antibiotics. Follow-up cultures. (3) Asthma Qualifiers: Asthma severity: mild Asthma persistence: persistent Is this a current diagnosis for this admission?: Yes Plan: Plan as per 1. (4) Epilepsy Is this a current diagnosis for this admission?: Yes Plan: No recurrence of seizure while inpatient. Continue home meds. Continue seizure, fall and aspiration precautions. (5) Hypothyroidism Is this a current diagnosis for this admission?: Yes Plan: Continue levothyroxine. TSH WNL. (6) Sleep apnea Is this a current diagnosis for this admission?: Yes Plan: Noncompliant with CPAP. Continue nocturnal CPAP.
[2019-03-29 15:10] LABS: ABSOLUTE BASOPHILS # (AUTO) 0.1 10^3/uL (0.0-0.2); ABSOLUTE LYMPHOCYTES (AUTO) 1.2 10^3/uL (0.5-4.7); ABSOLUTE MONOCYTES (AUTO) 1.1 10^3/uL (0.1-1.4); ABSOLUTE NEUT (AUTO) 9.8 10^3/uL (1.7-8.2); BASOPHILS % (AUTO) 0.6 % (0-2); HEMOGLOBIN 13.6 g/dL (12.0-15.5); MEAN CORPUSCULAR HEMOGLOBIN 31.3 pg (27.0-33.4); MEAN CORPUSCULAR VOLUME 92 fl (80-97); MONOCYTES % (AUTO) 8.7 % (3-13); PLATELET COUNT 370 10^3/uL (150-450); RED BLOOD COUNT 4.35 10^6/uL (3.72-5.28); RED CELL DISTRIBUTION WIDTH 15.5 % (11.5-14.0); SEGMENTED NEUTROPHILS % (AUTO) 80.7 % (42-78); TOTAL CELLS COUNTED % (AUTO) 100 %; WHITE BLOOD COUNT 12.1 10^3/uL (4.0-10.5)
[2019-03-29 15:31] LABS: ANION GAP 9 (5-19); BLOOD UREA NITROGEN 16 mg/dL (7-20); CALCIUM 9.3 mg/dL (8.4-10.2); CARBON DIOXIDE 30 mmol/L (22-30); CHLORIDE 101 mmol/L (98-107); GLUCOSE 146 mg/dL (75-110); POTASSIUM 4.5 mmol/L (3.6-5.0)
[2019-03-29 15:48] LABS: FREE T3 1.51 pg/mL (2.77-5.27); FREE T4 (FREE THYROXINE) 0.86 ng/dL (0.78-2.19)
[2019-03-30] MEDS: IPRATROPIUM/ALBUTEROL 0.5-2.5 MG/3 ML AMPUL NEB SCH ×4 (00:34→11:19)
[2019-03-30] MEDS: METHYLPREDNISOLONE INJ 125 MG/2 ML SDV IV SCH ×2 (06:34→13:20)
[2019-03-30] MEDS: LEVOTHYROXINE SODIUM 0.025 MG TABLET PO SCH (06:34)
[2019-03-30] MEDS: LEVOFLOXACIN 750 MG TABLET PO SCH (10:08)
[2019-03-30] MEDS: LAMOTRIGINE 25 MG TAB.CHEW PO SCH (10:09)
[2019-03-30] MEDS: FLUTICASONE/VILANTEROL 100-25 MCG/DOSE IH SCH (10:09)
[2019-03-30] MEDS ORDERED: INFLUENZA QUAD (6MOS+) 2019-20 VAC 0.5 ML SYR IM ONE (11:02)
[2019-03-30 12:23] LABS: AMORPHOUS SEDIMENT,URINE TRACE /HPF; APPEARANCE,URINE SLIGHTLY-CLOUDY; BILIRUBIN,URINE NEGATIVE (NEGATIVE); COLOR,URINE YELLOW; GLUCOSE, URINE NEGATIVE (NEGATIVE); KETONES,URINE NEGATIVE (NEGATIVE); LEUKOCYTE ESTERASE,URINE NEGATIVE (NEGATIVE); NITRITE,URINE NEGATIVE (NEGATIVE); PROTEIN,URINE NEGATIVE (NEGATIVE); URINE SPECIFIC GRAVITY 1.016; UROBILINOGEN,URINE NEGATIVE mg/dL (<2.0)
[2019-03-30 13:36] VITALS: BP 143/90
--- NOTE | 2019-04-01 15:41 | PDOC DISCHARGE SUMMARY ---
Impression - Admit/DC Date/PCP Admission Date/Primary Care Provider: 03/26/19 09:09 Discharge Date: 03/30/19 - Discharge Diagnosis (1) Acute respiratory failure with hypoxia Is this a current diagnosis for this admission?: Yes (2) Pneumonia Is this a current diagnosis for this admission?: Yes (3) Asthma Is this a current diagnosis for this admission?: Yes (4) Epilepsy Is this a current diagnosis for this admission?: Yes (5) Hypothyroidism Is this a current diagnosis for this admission?: Yes (6) Sleep apnea Is this a current diagnosis for this admission?: Yes - Additional Information Resuscitation Status: Full Code Discharge Diet: As Tolerated Discharge Activity: Activity As Tolerated, Balance Activity w/Rest Referrals: ELOISA CABRERA MD [NO LOCAL MD] - (PATIENT STATES SHE WILL MAKE HER OWN APPOINTMENT.) Prescriptions: Albuterol Sulfate [Albuterol Sulfate Hfa] 18 gm IH Q6 PRN 30 Days #1 hfa.aer.ad PRN Reason: Prednisone [Deltasone 20 mg Tablet] 40 mg PO DAILY 3 Days #6 tablet Levofloxacin [Levaquin 750 mg Tablet] 750 mg PO DAILY 2 Days #2 tablet Guaifenesin [Mucinex] 1,200 mg PO BID PRN 7 Days #14 tab.er.12h PRN Reason: Home Medications: Budesonide/Formoterol Fumarate [Symbicort HFA 80-4.5 mcg Inhaler 6.9 gm] 1 puff IH BID 03/26/19 Buspirone HCl [Buspar 15 mg Tablet] 5 mg PO Q8HP PRN 03/26/19 Lamotrigine [Lamotrigine Odt] 25 mg PO BID 03/26/19 Levothyroxine Sodium [Synthroid] 25 mcg PO Q6AM 03/26/19 Albuterol Sulfate [Albuterol Sulfate Hfa] 18 gm IH Q6 PRN 30 Days #1 hfa.aer.ad 03/30/19 Guaifenesin [Mucinex] 1,200 mg PO BID PRN 7 Days #14 tab.er.12h 03/30/19 Levofloxacin [Levaquin 750 mg Tablet] 750 mg PO DAILY 2 Days #2 tablet 03/30/19 Prednisone [Deltasone 20 mg Tablet] 40 mg PO DAILY 3 Days #6 tablet 03/30/19 History of Present Illiness History of Present Illness: BENOIT CHAVEZ is a 43 year old female who has history of asthma, COPD on CPAP which she is noncompliant with. She also has history of seizures and hypothyroidism. She is a former smoker. Her symptoms started initially 3 to 4 weeks ago. She was diagnosed with bronchitis in the emergency room and was discharged on azithromycin. She states she felt better but when she went to work she started to feel fatigued and tired and short of breath. Her symptoms progressed especially the past 3 days. Yesterday she actually was treated by EMS but did not come to the emergency room. Her symptoms did not improve and she had to come today for evaluation. She denied wheezing or fever. Admits to progressive severe cough with yellowish sputum production. Hospital Course Hospital Course: (1) Acute respiratory failure with hypoxia Resolved. SPO2 WNL on RA. Was likely due to right upper lobe pneumonia complicated by underlying asthma exacerbation. Was a started duo nebs, IV steroids, empiric IV antibiotics, supplemental oxygen, LABA, LABA, ICS. (2) Pneumonia Most likely community-acquired. CT chest patchy infiltrate right upper lobe. Likely due to gram-positive cocci including Streptococcus pneumonia. Cultures remain negative. Received 4 days of p.o. antibiotics. Was discharged on levofloxacin for another 3 days. (3) Asthma Plan as per 1. (4) Epilepsy No recurrence of seizure while inpatient. Continue home meds. Continue seizure, fall and aspiration precautions. (5) Hypothyroidism Continued levothyroxine. TSH WNL. (6) Sleep apnea Noncompliant with CPAP. Continued nocturnal CPAP. Physical Exam Vital Signs: Temp Pulse Resp BP Pulse Ox 97.7 F 81 16 149/87 H 94 03/30/19 13:02 03/30/19 13:02 03/30/19 13:02 03/30/19 13:02 03/30/19 13:02 Intake & Output 03/31/19 04/01/19 04/02/19 06:59 06:59 06:59 Intake Total 890 Output Total 1200 Balance -310 General appearance: PRESENT: morbidly obese Head exam: PRESENT: atraumatic, normocephalic Respiratory exam: PRESENT: clear to auscultation lorenza. ABSENT: rales, rhonchi, wheezes Cardiovascular exam: PRESENT: RRR. ABSENT: diastolic murmur, rubs, systolic murmur GI/Abdominal exam: PRESENT: normal bowel sounds, soft. ABSENT: distended, guarding, mass, organolmegaly, rebound, tenderness Neurological exam: PRESENT: alert, awake, oriented to person, oriented to place, oriented to time, oriented to situation, CN II-XII grossly intact. ABSENT: motor sensory deficit Results Laboratory Results: WBC 12.1 10^3/uL (4.0-10.5) H 03/29/19 14:37 RBC 4.35 10^6/uL (3.72-5.28) 03/29/19 14:37 Hgb 13.6 g/dL (12.0-15.5) 03/29/19 14:37 Hct 40.0 % (36.0-47.0) 03/29/19 14:37 MCV 92 fl (80-97) 03/29/19 14:37 MCH 31.3 pg (27.0-33.4) 03/29/19 14:37 MCHC 34.0 g/dL (32.0-36.0) 03/29/19 14:37 RDW 15.5 % (11.5-14.0) H 03/29/19 14:37 Plt Count 370 10^3/uL (150-450) 03/29/19 14:37 Lymph % (Auto) 10.0 % (13-45) L 03/29/19 14:37 [place] % (Auto) 8.7 % (3-13) 03/29/19 14:37 Eos % (Auto) 0.0 % (0-6) 03/29/19 14:37 Baso % (Auto) 0.6 % (0-2) 03/29/19 14:37 Absolute Neuts (auto) 9.8 10^3/uL (1.7-8.2) H 03/29/19 14:37 Absolute Lymphs (auto) 1.2 10^3/uL (0.5-4.7) 03/29/19 14:37 Absolute Monos (auto) 1.1 10^3/uL (0.1-1.4) 03/29/19 14:37 Absolute Eos (auto) 0.0 10^3/uL (0.0-0.6) 03/29/19 14:37 Absolute Basos (auto) 0.1 10^3/uL (0.0-0.2) 03/29/19 14:37 Seg Neutrophils % 80.7 % (42-78) H 03/29/19 14:37 Carbonic Acid 1.26 mmol/L (1.05-1.35) 03/26/19 04:17 HCO3/H2CO3 Ratio 19:1 03/26/19 04:17 ABG pH 7.40 (7.35-7.45) 03/26/19 04:17 ABG pCO2 41.8 mmHg (35-45) 03/26/19 04:17 ABG pO2 80.4 mmHg (80-100) 03/26/19 04:17 ABG HCO3 25.0 mmol/L (20-24) H 03/26/19 04:17 ABG Total CO2 26.3 mmol/L (21-25) H 03/26/19 04:17 ABG O2 Saturation 95.8 % (94-98) 03/26/19 04:17 ABG Base Excess 0.1 mmol/L 03/26/19 04:17 FiO2 6L 03/26/19 04:17 Sodium 140.2 mmol/L (137-145) 03/29/19 14:37 Potassium 4.5 mmol/L (3.6-5.0) 03/29/19 14:37 Chloride 101 mmol/L (98-107) 03/29/19 14:37 Carbon Dioxide 30 mmol/L (22-30) 03/29/19 14:37 Anion Gap 9 (5-19) 03/29/19 14:37 BUN 16 mg/dL (7-20) 03/29/19 14:37 Creatinine 0.70 mg/dL (0.52-1.25) 03/29/19 14:37 Est GFR ( Amer) > 60 (>60) 03/29/19 14:37 Est GFR (MDRD) Non-Af > 60 (>60) 03/29/19 14:37 Glucose 146 mg/dL (75-110) H 03/29/19 14:37 Lactic Acid 1.5 mmol/L (0.7-2.1) 03/26/19 04:02 Calcium 9.3 mg/dL (8.4-10.2) 03/29/19 14:37 Total Bilirubin 0.6 mg/dL (0.2-1.3) 03/26/19 04:02 Direct Bilirubin 0.3 mg/dL (0.0-0.4) 03/26/19 04:02 Neonat Total Bilirubin Not Reportable 03/26/19 04:02 Neonat Direct Bilirubin Not Reportable 03/26/19 04:02 Neonat Indirect Bili Not Reportable 03/26/19 04:02 AST 22 U/L (14-36) 03/26/19 04:02 ALT 18 U/L (<35) 03/26/19 04:02 Alkaline Phosphatase 69 U/L (38-126) 03/26/19 04:02 Total Protein 7.2 g/dL (6.3-8.2) 03/26/19 04:02 Albumin 4.0 g/dL (3.5-5.0) 03/26/19 04:02 TSH 0.30 uIU/mL (0.47-4.68) L 03/26/19 04:02 Free T4 0.86 ng/dL (0.78-2.19) 03/29/19 14:37 Free T3 pg/mL 1.51 pg/mL (2.77-5.27) L 03/29/19 14:37 Urine Color YELLOW 03/30/19 11:45 Urine Appearance SLIGHTLY-CLOUDY 03/30/19 11:45 Urine pH 7.0 (5.0-9.0) 03/30/19 11:45 Ur Specific [place] 1.016 03/30/19 11:45 Urine Protein NEGATIVE mg/dL (NEGATIVE) 03/30/19 11:45 Urine Glucose (UA) NEGATIVE mg/dL (NEGATIVE) 03/30/19 11:45 Urine Ketones NEGATIVE mg/dL (NEGATIVE) 03/30/19 11:45 Urine Blood MODERATE (NEGATIVE) H 03/30/19 11:45 Urine Nitrite NEGATIVE (NEGATIVE) 03/30/19 11:45 Urine Bilirubin NEGATIVE (NEGATIVE) 03/30/19 11:45 Urine Urobilinogen NEGATIVE mg/dL (<2.0) 03/30/19 11:45 Ur Leukocyte Esterase NEGATIVE (NEGATIVE) 03/30/19 11:45 Urine WBC (Auto) 2 /HPF 03/30/19 11:45 Urine RBC (Auto) 37 /HPF 03/30/19 11:45 Squamous Epi Cells Auto 4 /HPF 03/30/19 11:45 Amorphous Sediment Auto TRACE /HPF 03/30/19 11:45 Urine Mucus (Auto) RARE /LPF 03/30/19 11:45 Urine Ascorbic Acid NEGATIVE (NEGATIVE) 03/30/19 11:45 Influenza A (Rapid) NEGATIVE (NEGATIVE) 03/26/19 05:23 Influenza B (Rapid) NEGATIVE (NEGATIVE) 03/26/19 05:23 Impressions: Chest/Abdomen CTA 03/26/19 06:39 IMPRESSION: Patchy areas of infiltrate in the left upper lobe. No pulmonary emboli. Stroke Is this a Stroke Patient?: No Acute Heart Failure - Is this a Heart Failure Patient?: No
== END 2019-03-30 13:55 | disposition home or self-care (01) ==
LOC: ER 03:55 → INTOOBSV 09:09 → EH 09:09 → 5 14:17
PROVIDERS: ADMIT Family Medicine; ATTEND Family Medicine
DX: J96.01 Acute respiratory failure with hypoxia (principal); J18.9 Pneumonia, unspecified organism; J45.31 Mild persistent asthma with (acute) exacerbation; G40.909 Epilepsy, unspecified, not intractable, without status epilepticus; E03.9 Hypothyroidism, unspecified; G47.30 Sleep apnea, unspecified; J44.9 Chronic obstructive pulmonary disease, unspecified; E66.01 Morbid (severe) obesity due to excess calories; R00.0 Tachycardia, unspecified; Z79.899 Other long term (current) drug therapy; Z87.891 Personal history of nicotine dependence; Z91.19 Patient's noncompliance with other medical treatment and regimen; Z83.3 Family history of diabetes mellitus; Z99.81 Dependence on supplemental oxygen; Z23 Encounter for immunization
CPT/HCPCS: 93005; 94640 ×7; 99285; 96375; 96365; 36415 ×3; 87040; 87070; 84439; 87205; 82803; 83605; 84443; 85025 ×3; 80048 ×2; 80053; 81001; 84481; 87804; 71045; 71275; 90686; 93010; 94660 ×4; G0378 ×6; J2930 ×5; J3490 ×4; J3475; J7512 ×2; J2405; J1956; J7620 ×5